=== PATIENT | female | born 1975 | race Caucasian/White ===

== ENCOUNTER → 2020-11-10 | Outpatient (CLI) | payer OTHER ==
[2020-11-10 10:37] LABS: ABSOLUTE LYMPHOCYTES 1.8 thou/uL (0.8-5.3); ABSOLUTE MONOCYTES 0.3 thou/uL (0.0-1.2); ABSOLUTE NEUTROPHILS 1.5 thou/uL (1.6-8.1); BASOPHILS 0.3 %; EOSINOPHILS 0.7 %; HEMATOCRIT 33.9 % (37.0-47.0); HEMOGLOBIN 11.3 gm/dL (12.0-15.0); LYMPHOCYTES 50.6 %; MCH 27.4 pg (26.0-34.0); MCHC 33.4 g/dL (28.0-37.0); MCV 81.9 fL (80.0-100.0); MONOCYTES 7.6 %; NUCLEATED RBCS 0 /100WBC; PLATELET COUNT* 256 thou/uL (150-400); POLYS 40.8 %; RBC 4.14 mil/uL (4.20-5.00); RDW-CV 14.4 % (10.5-14.5); WBC 3.6 thou/uL (4.0-11.0)
[2020-11-10 10:56] LABS: ALBUMIN 3.6 g/dL (3.4-5.0); CALCIUM 8.5 mg/dL (8.5-10.1); CREATININE 0.7 mg/dL (0.6-1.3); POTASSIUM 3.9 mmol/L (3.5-5.1); TOTAL BILIRUBIN 0.5 mg/dL (<0.1-1.0); TOTAL PROTEIN 8.2 g/dL (6.4-8.2)
== END ==
LOC: M.LAB 10:14
PROVIDERS: ATTEND Specialist
DX: R31.9 Hematuria, unspecified (principal); D64.9 Anemia, unspecified; N94.10 Unspecified dyspareunia; N93.9 Abnormal uterine and vaginal bleeding, unspecified; R10.2 Pelvic and perineal pain

== ENCOUNTER → 2020-11-18 | Outpatient (CLI) | payer OTHER | LOC: EDUNIT# 11-09 15:05 → M.ULTRA 09:30 | PROVIDERS: ATTEND Specialist | DX: D25.9 Leiomyoma of uterus, unspecified (principal); N94.10 Unspecified dyspareunia; N93.9 Abnormal uterine and vaginal bleeding, unspecified; R87.89 Other abnormal findings in specimens from female genital organs ==

== ENCOUNTER → 2020-12-01 | Outpatient (CLI) | payer OTHER | LOC: M.MRI 11:13 | PROVIDERS: ATTEND Specialist | DX: N88.8 Other specified noninflammatory disorders of cervix uteri (principal); N83.291 Other ovarian cyst, right side; K40.20 Bilateral inguinal hernia, without obstruction or gangrene, not specified as recurrent; D21.9 Benign neoplasm of connective and other soft tissue, unspecified ==